=== PATIENT | female | born 1990 | race Caucasian/White ===

== ENCOUNTER 2016-06-14 15:45 | Emergency (ER) | payer SELFPAY ==
[2016-06-14 15:53] VITALS: BP 130/78; PULSE 83; TEMP 98.1; BMI 24.0
--- NOTE | 2016-06-14 16:18 | PDOC ---
History of Present Illness - General Chief Complaint: Injury Stated Complaint: RT KNEE PAIN Time Seen by Provider: 06/14/16 16:18 - History of Present Illness Initial Comments: 06/14/16 16:33 Complaint: Right knee pain History of present illness: Patient complains of pain and swelling in the right knee. 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 Pain is both medial and lateral Review of systems: The patient denies any distal numbness tingling pain or weakness of the lower leg or foot. He denies any other injuries including injuries to the head neck chest abdomen spine and pelvis or other extremities Past medical history: Knee surgery 8 years ago for a torn medial collateral ligament. 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 No deformity. No limited range of motion. No erythema, induration, or palpable mass. Patella and patellar retinaculum intact and nontender. Straight leg raising is intact. There is mild stress tenderness of the MCL but no laxity. LCL normal. Lockman negative. Sylvia is negative and there is no joint space tenderness suggestive of meniscus injury. Pulses full and no distal sensory or motor deficit. Gait stable and improved. Impression: Minor knee sprain, small effusion, no sign of ligament or cartilage damage.: Plan: Rest, ice, anti-inflammatory, knee immobilizer for one week. Orthopedic follow-up if pain or swelling persist. Fully ambulatory and in no significant pain or other distress upon discharge to follow-up as directed Past History - Past Medical History Allergies/Adverse Reactions: Allergies Allergy/AdvReac Type Severity Reaction Status Date / Time strawberry [[place]] Allergy Severe Difficulty Verified 06/14/16 15:47 Breathing codeine [Codeine] Allergy Intermediate Nausea Verified 06/14/16 15:47 Home Medications: Ambulatory Orders No Known Home Medication 07/11/15 Cardiac Disorders: Yes (ATRIAL FIBRILLATION) Diabetes: No HTN: No - Immunization History Immunization Up to Date: Yes - Psycho/Social/Smoking Cessation Hx Anxiety: No Suicidal Ideation: No Smoking Status: No Smoking History: Never smoked Have you smoked in the past 12 months: Yes Number of Cigarettes Smoked Daily: 10 Information on smoking cessation initiated: Yes Hx Alcohol Use: No Drug/Substance Use Hx: No Substance Use Type: None Trauma Specific PMHX - Complaint Specific PMHX Arthritis: No *Physical Exam - Vital Signs Last Vital Signs Temp Pulse Resp BP Pulse Ox 98.1 F 83 18 130/78 100 06/14/16 15:45 06/14/16 15:45 06/14/16 15:45 06/14/16 15:45 06/14/16 15:45 *DC/Admit/Observation/Transfer Diagnosis at time of Disposition: Knee sprain Qualifiers: Encounter type: initial encounter Involved ligament of knee: unspecified collateral ligament Laterality: right Qualified Code(s): S83.401A - Sprain of unspecified collateral ligament of right knee, initial encounter - Discharge Dispostion Disposition: HOME Condition at time of disposition: Stable Admit: No - Referrals Referrals: Rodolfo Jimenez MD [Staff Physician] - 1 week - Patient Instructions Printed Discharge Instructions: DI for Knee Sprain, How to Use a Knee Immobilizer Additional Instructions: Rest, ice, anti-inflammatory, ibuprofen or naproxen, follow up with orthopedic surgeon if symptoms persist. Consider physical therapy/exercises
== END 2016-06-14 16:30 | disposition home or self-care (01) ==
LOC: FER 15:45
PROC: 2W3QX1Z Immobilization of Right Lower Leg using Splint (ICD-10-PCS; principal; 2016-06-14)
DX: S83.401A Sprain of unspecified collateral ligament of right knee, initial encounter (principal); X58.XXXA Exposure to other specified factors, initial encounter; Y93.9 Activity, unspecified; Y92.239 Unspecified place in hospital as the place of occurrence of the external cause; Y99.0 Civilian activity done for income or pay
CPT/HCPCS: 99282-25

== ENCOUNTER 2016-07-17 14:05 | Emergency (ER) | payer OTHER ==
[2016-07-17 14:20] VITALS: BP 105/68; PULSE 87; TEMP 97.8; BMI 23.1
--- NOTE | 2016-07-17 15:14 | PDOC ---
History of Present Illness - General History Source: Patient Exam Limitations: No Limitations - History of Present Illness Initial Comments: 07/17/16 15:38 The patient is a 26 year old female, with a significant past medical history of MCL knee repair (8 years ago) who presents to the emergency department with right knee pain and swelling for the past 2 weeks. She ranks her knee pain a 5/ 10 in pain intensity. She notes having popping in her right knee with any walking. The patient was here about a month ago presenting with similar symptoms. She denies any locking, or catching in her right knee. She denies any LE numbness and tingling. She denies any recent trauma or injury to her right knee. She denies recent fevers, chills, headache or dizziness. Pt was referred to ortho and had an appt with her ortho, but neither takes her new insurance. Allergies: Codeine. Past surgical history: See HPI Social history: Nonsmoker. Denies EtOH use and recreational drug use. <Kain Frost - Last Filed: 07/17/16 15:37> <Bro Mccauley - Last Filed: 07/17/16 16:03> - General Chief Complaint: Pain, Acute Stated Complaint: RIGHT KNEE PAIN AND SWELLING Time Seen by Provider: 07/17/16 14:18 Past History <Kain Frost - Last Filed: 07/17/16 15:37> - Past Medical History Cardiac Disorders: Yes (ATRIAL FIBRILLATION(RESOLVED)) Diabetes: No HTN: No - Immunization History Immunization Up to Date: Yes - Psycho/Social/Smoking Cessation Hx Anxiety: No Suicidal Ideation: No Smoking Status: No Smoking History: Current every day smoker Have you smoked in the past 12 months: Yes Number of Cigarettes Smoked Daily: 10 Information on smoking cessation initiated: No 'Breaking Loose' booklet given: 06/14/16 Hx Alcohol Use: Yes (SOCIAL) Drug/Substance Use Hx: No Substance Use Type: Alcohol <Bro Mccauley - Last Filed: 07/17/16 16:03> - Past Medical History Allergies/Adverse Reactions: Allergies Allergy/AdvReac Type Severity Reaction Status Date / Time strawberry [[place]] Allergy Severe Difficulty Verified 07/17/16 14:08 Breathing codeine [Codeine] Allergy Intermediate Nausea Verified 07/17/16 14:08 Home Medications: Ambulatory Orders NK [No Known Home Medication] 07/17/16 Review of Systems - Review of Systems Able to Perform ROS?: Yes Comments:: 07/17/16 15:38 CONSTITUTIONAL: No reported: Fever, Chills, Diaphoresis, Generalized Weakness, MUSCULOSKELETAL: +right knee pain. No reported: Myalgia, Arthralgia, Joint Swelling, Back pain, Neck Pain SKIN: No reported: Rash, Itching, Pallor NEUROLOGIC: No reported: Headache, Focal Weakness, Numbness/Tingling, Paresthesias, Vertigo , Lightheadedness <Kain Frost - Last Filed: 07/17/16 15:37> *Physical Exam - Vital Signs Last Vital Signs Temp Pulse Resp BP Pulse Ox 97.8 F 87 16 105/68 100 07/17/16 14:07/17/16 14:07/17/16 14:07/17/16 14:07/17/16 14:07 - Physical Exam Comments: 07/17/16 15:38 Physical exam: Alert and oriented well-developed well-nourished no acute distress cheerful and cooperative Afebrile, vital signs normal Right knee: Mild diffuse swelling with small effusion present. No deformity. No limited range of motion. No erythema, induration, or palpable mass. Patella and patellar retinaculum intact and nontender. Straight leg raising is intact. There is mild stress tenderness of the MCL but no laxity. LCL normal. Lockman negative. Sylvia is negative and there is no joint space tenderness suggestive of meniscus injury. Pulses full and no distal sensory or motor deficit. Gait stable and improved. GENERAL: The patient is awake, alert, and fully oriented, Nontoxic - in no acute distress. EXTREMITIES: normal ROM of RLE hip/knee/ankle, trace effusion, no erythema/ warmth, mild crepitus appreciated with lateral movement of patella, mild stress tenderness of mcl, neg thalia, mucmurry, NEUROLOGICAL: nv intact distally, No facial assymetry, Normal speech, <Kain Frost - Last Filed: 07/17/16 15:37> - Vital Signs Last Vital Signs Temp Pulse Resp BP Pulse Ox 97.8 F 87 16 105/68 100 07/17/16 14:07 07/17/16 14:07 07/17/16 14:07 07/17/16 14:07 07/17/16 14:07 <Bro Mccauley - Last Filed: 07/17/16 16:03> Medical Decision Making - Medical Decision Making 07/17/16 15:14 26y F hx of prior knee surgeries presents with R knee pain for several weeks, also feels a rinding hen she is going up stairs and feels there is mild swelling. no fever/chills. on exam pt has n ofocal tenderness, minimal effusion , no focal tenderness. will obtain xray to eval for underlying cause pt declines motrin (last had it 5 hrs ago) no erythema/warmth to suggest infeted joint. A portion of this note was documented by scribe services under my direction. I have reviewed the details of the note, within reason, and agree with the documentation with the following case summary and management plan written by me 07/17/16 16:01 xray negative will dc with pmd/ortho fu return precautions were discussed I discussed the physical exam findings, ancillary test results and final diagnoses with the patient. I answered all of the patient's questions. The patient was satisfied with the care received and felt comfortable with the discharge plan and treatment plan. The patient will call their primary care physician within 24 hours to arrange follow-up and will return to the Emergency Department with any new, persistent or worsening symptoms. <Bro Mccauley - Last Filed: 07/17/16 16:03> *DC/Admit/Observation/Transfer - Attestations Scribe Attestion: 07/17/16 15:38 Documentation prepared by Kain Frost, acting as medical health researcher for Bro Mccauley MD. <Kain Frost - Last Filed: 07/17/16 15:37> - Discharge Dispostion Admit: No <Bro Mccauley - Last Filed: 07/17/16 16:03> Diagnosis at time of Disposition: Knee pain, right Qualifiers: Chronicity: chronic Qualified Code(s): M25.561 - Pain in right knee - Discharge Dispostion Disposition: HOME Condition at time of disposition: Improved - Referrals Referrals: Rodriguez De Paz MD [Staff Physician] - - Patient Instructions Printed Discharge Instructions: DI for Knee Pain Additional Instructions: Return to the emergency department immediately with ANY new, persistent or worsening symptoms. Rest, ice, motrin or alleve as needed for one week. Orthopedic follow-up if pain persists. You MUST call and follow up with your doctor tomorrow for further evaluation of your symptoms. Results were discussed with you. Please make sure your doctor reviews the results of your emergency evaluation. Print Language: GUAMANIAN
== END 2016-07-17 16:13 | disposition home or self-care (01) ==
LOC: FER 14:05
DX: M25.561 Pain in right knee (principal); I10 Essential (primary) hypertension; F17.210 Nicotine dependence, cigarettes, uncomplicated
CPT/HCPCS: 73560-TC-RT; 99282-25